=== PATIENT | male | born 1930 | race Caucasian/White ===

== ENCOUNTER 2017-04-18 19:15 | Inpatient (IN) | payer MEDICARE, MEDICAID ==
[~2017-04-18] VITALS: Ht 177.8 cm; Wt 85.3 kg
--- NOTE | 2017-04-18 19:20 | NUR ---
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 PATIENT IS AAOX3, MOROCCAN SPEAKING. PLACED PATIENT ON CARDIAC AND VS MONITORING. COMFORT MEASURES RENDERED. DR GUTIERREZ AT BEDSIDE TO EVALUATE PATIENT.
[2017-04-18] MEDS ORDERED: DILTIAZEM HCL 25 MG IV ONE (19:23)
[2017-04-18] MEDS ORDERED: ONDANSETRON HCL/PF 4 MG/2 ML VIAL ONE (19:29)
[2017-04-18] MEDS ORDERED: DILTIAZEM HCL 25 MG IV IV ONE (19:30)
[2017-04-18] MEDS ORDERED: IV NS 0.9% 500 ML BAG IV ONE (19:30)
[2017-04-18] MEDS ORDERED: ONDANSETRON HCL/PF 4 MG/2 ML VIAL IVP ONE (19:30)
[2017-04-18] MEDS ORDERED: DIGOXIN INJ 0.5 MG/2 ML AMPUL ONE (19:38)
[2017-04-18] MEDS ORDERED: AMIODARONE 150 MG/3 ML VIAL IV ONE ×3 (19:39→20:00)
--- NOTE | 2017-04-18 19:45 | NUR ---
STARTED ON THE AMIO BOLUS AT THIS TIME TO PREET PICC LINE, ONGOING CARDIAC MONITORING. CRASH CART AT BEDSIDE. JARED AT BEDSIDE WITH DR GUTIERREZ.
[2017-04-18 19:59] LABS: BASOPHILS # (AUTO) 0.1 /CMM (0.0-0.2); BASOPHILS % (AUTO) 0.6 % (0.0-2.0); EOSINOPHILS # (AUTO) 0.1 /CMM (0.0-0.7); EOSINOPHILS % (AUTO) 0.9 % (0.0-6.0); HEMATOCRIT 28 % (39-51); HEMOGLOBIN 9.4 g/dL (13.5-17.5); LYMPHOCYTES # (AUTO) 1.2 /CMM (0.8-4.8); LYMPHOCYTES % (AUTO) 13.5 % (20.0-44.0); MEAN CORPUSCULAR HEMOGLOBIN 30 PG (26.0-33.0); MEAN CORPUSCULAR HGB CONC 34 g/dl (31.0-36.0); MEAN CORPUSCULAR VOLUME 89 fL (80-96); MONOCYTES # (AUTO) 0.6 /CMM (0.1-1.30); MONOCYTES % (AUTO) 7.4 % (2.0-12.0); NEUTROPHILS # (AUTO) 6.7 /CMM (1.8-8.9); NEUTROPHILS % (AUTO) 77.6 % (43.0-81.0); PLATELET COUNT (AUTO) 170 /CMM (150-450); RDW COEFFICIENT OF VARIATION 16.3 (11.5-15.0); WHITE BLOOD COUNT (AUTO) 8.7 K/uL (4.3-11.0)
[2017-04-18] MEDS ORDERED: DIGOXIN INJ 0.5 MG/2 ML AMPUL IV ONE (20:00)
[2017-04-18] MEDS ORDERED: AMIODARONE 150 MG in IV D5W 100 ML IV ONE (20:00)
[2017-04-18] MEDS ORDERED: IV NS 0.9% 500 ML IV ONE (20:00)
[2017-04-18] MEDS: AMIODARONE 900 MG in IV D5W 482 ML IV PRN ×2 (20:05→22:00)
--- NOTE | 2017-04-18 20:05 | NUR ---
STARTED PATIENT WITH THE AMIO DRIP AT THIS TIME AT 1MG/MIN. PATIENT REPORTS RELIEF FROM CHEST PAIN AT THIS TIME. WILL CLOSELY MONITOR PATIENT.
[2017-04-18 20:08] LABS: INR 1.24 (0.87-1.13); PROTHROMBIN TIME 12.9 SECS (9.5-12.7)
[2017-04-18 20:12] LABS: CALCIUM, SERUM 7.3 mg/dL (8.5-10.1); CARBON DIOXIDE 18 mmol/L (21-32); CHLORIDE 106 mmol/L (98-107); CREATININE 3.4 mg/dL (0.6-1.3); GLUCOSE 104 mg/dL (74-106); POTASSIUM 3.8 mmol/L (3.5-5.1); SODIUM SERUM 136 mmol/L (136-145); TROPONIN I 0.072 ng/mL (0.00-0.056); UREA NITROGEN, BLOOD 48 mg/dL (7-18)
[2017-04-18 20:25] LABS: ALANINE AMINOTRANSFERASE 45 U/L (12-78); ALBUMIN 2.9 g/dL (3.4-5.0); ALKALINE PHOSPHATASE 70 U/L (46-116); ASPARTATE AMINOTRANSFERASE 67 U/L (15-37); B-TYPE NATRIURETIC PEPTIDE 514 PG/ML (0-125); BILIRUBIN,DIRECT 0.1 mg/dL (0.0-0.2); BILIRUBIN,TOTAL 0.6 mg/dL (0.2-1.0); TOTAL PROTEIN, SERUM 5.4 g/dL (6.4-8.2)
[2017-04-18] MEDS ORDERED: *INS NOVA SQ (20:44)
[2017-04-18] MEDS ORDERED: METR500P4 IV (20:44)
[2017-04-18] MEDS ORDERED: ASPI-1169 PO (20:44)
[2017-04-18] MEDS ORDERED: DILT240C2 PO (20:44)
[2017-04-18] MEDS ORDERED: METO-356 PO (20:44)
[2017-04-18] MEDS ORDERED: ATOR40TA PO (20:44)
[2017-04-18] MEDS ORDERED: INSU3INS9 SQ ×2 (20:44)
[2017-04-18] MEDS ORDERED: LEVO25TA7 PO (20:44)
[2017-04-18] MEDS ORDERED: SITA100T PO (20:44)
[2017-04-18] MEDS ORDERED: BUDE10.2 INH (20:44)
[2017-04-18] MEDS ORDERED: FURO20TA4 PO (20:44)
[2017-04-18] MEDS ORDERED: LEVO500P8 IV (20:44)
[2017-04-18] MEDS ORDERED: OMEP20CA10 PO (20:44)
[2017-04-18] MEDS ORDERED: LOSA50TA21 PO (20:44)
--- NOTE | 2017-04-18 21:10 | NUR ---
TRANSFERRED PATIENT TO ICU BED 252 VIA ALS PROTOCOL, ENDORSED TO DISHA BALBUENA AT BEDSIDE.
[2017-04-18 21:13] VITALS: BP 119/49
--- NOTE | 2017-04-18 21:15 | NUR ---
ADOPTION SERVICES MANAGER RCD PT FROM ER W/DX CHEST PAIN; PT IS A/O x4 ABLE TO MAKES NEEDS KNOWN. NSR ON MONITOR. CLEAR LUNG SOUNDS ON O2 2L NC. PT DENIES CHEST PAIN ONLY SOME DISCOMFORT TO BLE. PT MID ABDOMEN INCISION. LARGE BRUISES TO BACK AREA. COLOSTOMY WITH SMALL AMOUNT OF FORMED STOOL NOTED. PREET PICC LINE PATENT AND FLUSHING WELL. AMIODARONE DRIP AT 1 MG/MIN PER ER STARTED AT 2000; WILL ADJUST DOSAGE AT 0200.
[2017-04-18 22:00] VITALS: BP 115/58
--- NOTE | 2017-04-18 22:00 | NUR ---
BIOINFORMATICIST JARED AT BEDSIDE UPDATED WITH PLAN OF CARE. PT CONTINUES TO DENY CHEST PAIN. S/W C SANGEETHA DURABILITY TECHNICIAN OKAY FOR PT TO HAVE DIET AND SHE WILL SEE PT SOON.
[2017-04-18 22:30] VITALS: BP 101/52
[2017-04-18] MEDS ORDERED: ACETAMINOPHEN 325 MG TABLET PO PRN (22:30)
[2017-04-18] MEDS: IV NS 0.9% 1,000 ML IV PRN (22:30)
[2017-04-18] MEDS ORDERED: Z GUARD REMEDY 2 OZ OINT TP PRN (22:30)
[2017-04-18] MEDS ORDERED: ONDANSETRON HCL/PF 4 MG/2 ML VIAL IVP PRN (22:30)
[2017-04-18] MEDS ORDERED: MAGNESIUM HYDROXIDE 30 ML UDC PO PRN (22:30)
[2017-04-18] MEDS ORDERED: METRONIDAZOLE 500MG/ NS 100ML 100 ML IV ONE (22:45)
[2017-04-18] MEDS ORDERED: ZOLPIDEM TARTRATE 5 MG TABLET ONE (22:45)
[2017-04-18] MEDS: ZOLPIDEM TARTRATE 5 MG TABLET PO PRN (22:47)
--- NOTE | 2017-04-18 22:47 | NUR ---
PYROMETER MECHANIC PT REQUESTED SLEEPING PILL; AMBIEN 5 MG PO GIVEN. EDUCATED PT ON MEDICATION. VERBALIZED UNDERSTANDING.
[2017-04-18 23:00] VITALS: BP 116/51
[2017-04-18] MEDS ORDERED: FLAGYL/NS RTU 500 MG/100 ML PIGGYBACK IV SCH (23:00)
[2017-04-18 23:30] VITALS: BP 111/77
[2017-04-19] VITALS (46 sets, daily range): BP systolic 103–171; BP diastolic 44–83
[2017-04-19] MEDS: LEVOFLOXACIN 500 MG /D5W 100ML 100 ML IV SCH (03:00)
[2017-04-19 05:27] LABS: BASOPHILS % (AUTO) 0.3 % (0.0-2.0); EOSINOPHILS # (AUTO) 0.1 /CMM (0.0-0.7); EOSINOPHILS % (AUTO) 2.1 % (0.0-6.0); HEMATOCRIT 23 % (39-51); HEMOGLOBIN 7.8 g/dL (13.5-17.5); LYMPHOCYTES # (AUTO) 0.9 /CMM (0.8-4.8); LYMPHOCYTES % (AUTO) 16.2 % (20.0-44.0); MEAN CORPUSCULAR HEMOGLOBIN 31 PG (26.0-33.0); MEAN CORPUSCULAR HGB CONC 34 g/dl (31.0-36.0); MEAN CORPUSCULAR VOLUME 90 fL (80-96); MONOCYTES # (AUTO) 0.5 /CMM (0.1-1.30); MONOCYTES % (AUTO) 9.3 % (2.0-12.0); NEUTROPHILS # (AUTO) 4.2 /CMM (1.8-8.9); NEUTROPHILS % (AUTO) 72.1 % (43.0-81.0); PLATELET COUNT (AUTO) 128 /CMM (150-450); RDW COEFFICIENT OF VARIATION 17.2 (11.5-15.0); RED BLOOD CELL COUNT(AUTO) 2.52 MIL/uL (4.5-6.0); WHITE BLOOD COUNT (AUTO) 5.8 K/uL (4.3-11.0)
[2017-04-19 05:44] LABS: CALCIUM, SERUM 7.1 mg/dL (8.5-10.1); CARBON DIOXIDE 19 mmol/L (21-32); CHLORIDE 107 mmol/L (98-107); CREATININE 3.5 mg/dL (0.6-1.3); GLUCOSE 101 mg/dL (74-106); PHOSPHORUS 3.4 mg/dL (2.5-4.9); POTASSIUM 3.9 mmol/L (3.5-5.1); SODIUM SERUM 137 mmol/L (136-145); UREA NITROGEN, BLOOD 49 mg/dL (7-18)
[2017-04-19 05:46] LABS: CHOLESTEROL 71 mg/dL (<200); HDL CHOLESTEROL 29 mg/dL (40-60); LDL 34 mg/dL (0-99); TRIGLYCERIDES 56 mg/dL (30-150)
[2017-04-19] MEDS: METRONIDAZOLE 500MG/ NS 100ML 500 MG in PREMIX 1 EA IV SCH ×3 (06:15→21:13)
--- NOTE | 2017-04-19 06:57 | NUR ---
POCKETED SPRING MACHINE OPERATOR PT DENIED CHEST PAIN ALL THROUGH SHIFT.
[2017-04-19 08:10] LABS: THYROID STIMULATING HORMONE 7.485 uIU/mL (0.358-3.74)
[2017-04-19] MEDS: LINAGLIPTIN 5 MG TABLET PO SCH (08:33)
[2017-04-19] MEDS: LEVOTHYROXINE SODIUM 25 MCG TABLET PO SCH (08:33)
[2017-04-19] MEDS ORDERED: LOSARTAN POTASSIUM 50 MG TABLET PO SCH (09:00)
[2017-04-19] MEDS: IV NS 0.9% 1,000 ML IV PRN (12:42)
[2017-04-19] MEDS ORDERED: AMIODARONE HCL 200 MG TABLET PO SCH (17:00)
[2017-04-19] MEDS ORDERED: ATORVASTATIN 40 MG TABLET PO SCH (18:00)
[2017-04-19 18:25] LABS: HEMOGLOBIN 9.7 g/dL (13.5-17.5)
--- NOTE | 2017-04-19 19:30 | NUR ---
THREAD LASTER RCD PT W/DX CHEST PAIN; PT IS A/Ox4. DENIES CHEST PAIN. NSR ON MONITOR. ON ROOM W/CLEAR LUNG SOUNDS. PREET PICC W/NS @ 75 ML/HR. RENDERED JAC CARE. PT PENDING TRANSFER TO [facility].
[2017-04-19] MEDS: ZOLPIDEM TARTRATE 5 MG TABLET PO PRN (21:13)
--- NOTE | 2017-04-19 21:13 | NUR ---
STONE CARRIAGE OPERATOR PT GIVEN AMBIEN 5 MG REQUESTED.
--- NOTE | 2017-04-19 23:00 | NUR ---
RN INITIAL [facility] NOTES TRANSFER FROM ICU RECEIVED 86 YR OLD MALE, AOX3 GREEK SPEAKING ON R/A WELL ALDA, DENIES ANY PAIN OR DISCOMFORT. WITH ABD INCISION 3 WKS AGO, GENTLE CARE WHILE PROVINDING ADLS. BP 160/69 102 AFEBRILE. WITH A PREET PICC LINE, WITH NS@75ML/HR RUNNING. SITE INTACT, NO SIGN OF INFILTRATION. LEAD ARCHITECT SANGEETHA PAGED FOR ELEVATED BP. ALL PT NEEDS MET, SAFETY MEASURES IN PLACE, WILL CONT TO MONITOR.
--- NOTE | 2017-04-19 23:00 | NUR ---
TRAFFIC ANALYSIS TECHNICIAN PT TRANSFERRED TO [facility]. RE[facility] PRIOR TO TRANSFER.
--- NOTE | 2017-04-19 23:15 | NUR ---
MACHINE CLOTH TRIMMER NOTIFIED PT JARED BOSCH OF TRANSFER.
--- NOTE | 2017-04-20 00:20 | NUR ---
SANGEETHA WOODEN SHADE HARDWARE INSTALLER CALL BACK WITH ORDER FOR HYDRAZINE 10MG IV Q6H PRN. ORDER CARRIED OUT.
[2017-04-20] MEDS ORDERED: hydrALAZINE HCL IV 20 MG VIAL ONE (00:21)
[2017-04-20] MEDS ORDERED: hydrALAZINE HCL IV 20 MG VIAL IV PRN (00:30)
[2017-04-20 00:53] VITALS: BP 160/69
[2017-04-20] MEDS: HYDROCODONE/APAP 5/325MG 1 EACH TABLET PO PRN ×4 (03:06→21:22)
[2017-04-20] MEDS: LEVOFLOXACIN 500 MG /D5W 100ML 100 ML IV SCH (03:10)
[2017-04-20 04:00] VITALS: BP 163/66
[2017-04-20] MEDS: METRONIDAZOLE 500MG/ NS 100ML 500 MG in PREMIX 1 EA IV SCH ×3 (04:52→21:27)
[2017-04-20] MEDS: hydrALAZINE HCL 50 MG TABLET PO SCH ×4 (06:00→16:48)
--- NOTE | 2017-04-20 07:02 | NUR ---
RN CLOSING NOTES PT ENDORSED AOX3, ALL NEEDS MET CLEANED OMARI 2HR, ON ROOM AIR, WELL ALDA, BP TENDS TO TREND UP WITH PRN ORDER OBTAINED. WILL ENDORSE TO AM NURSE TO F/U AND MONITOR.
--- NOTE | 2017-04-20 07:15 | NUR ---
RN INITIAL NOTE RN RECEIVED PATIENT IN BED AOX4 GUINEAN SPEAKING/ SOME PALAUAN WELL ON R/A WELL TOLERATING WELL , STATES ABDOMINAL PAIN AT THIS TIME ALSO REQUESTING A DRESSING CHANGE MIDLINE ABD INCISION, . PREET PICC LINE, WITH NS@75ML/HR RUNNING. SITE INTACT, NO SIGN OF INFILTRATION. ALL NEEDS MET AT THIS TIME , SAFETY MEASURES IN PLACE,RN WILL CONT TO MONITOR THROUGHOUT THE DAY R.
[2017-04-20 08:00] VITALS: BP 152/82
[2017-04-20 08:04] LABS: BASOPHILS % (AUTO) 0.1 % (0.0-2.0); EOSINOPHILS # (AUTO) 0.1 /CMM (0.0-0.7); EOSINOPHILS % (AUTO) 1.2 % (0.0-6.0); HEMATOCRIT 31 % (39-51); HEMOGLOBIN 10.8 g/dL (13.5-17.5); LYMPHOCYTES # (AUTO) 1.1 /CMM (0.8-4.8); LYMPHOCYTES % (AUTO) 11.2 % (20.0-44.0); MEAN CORPUSCULAR HEMOGLOBIN 31 PG (26.0-33.0); MEAN CORPUSCULAR HGB CONC 35 g/dl (31.0-36.0); MEAN CORPUSCULAR VOLUME 89 fL (80-96); MONOCYTES % (AUTO) 10.7 % (2.0-12.0); NEUTROPHILS # (AUTO) 7.2 /CMM (1.8-8.9); NEUTROPHILS % (AUTO) 76.8 % (43.0-81.0); PLATELET COUNT (AUTO) 125 /CMM (150-450); RDW COEFFICIENT OF VARIATION 15.7 (11.5-15.0); RED BLOOD CELL COUNT(AUTO) 3.47 MIL/uL (4.5-6.0); WHITE BLOOD COUNT (AUTO) 9.4 K/uL (4.3-11.0)
[2017-04-20] MEDS: LINAGLIPTIN 5 MG TABLET PO SCH (08:15)
[2017-04-20] MEDS: LEVOTHYROXINE SODIUM 25 MCG TABLET PO SCH (08:15)
[2017-04-20 08:32] LABS: ALANINE AMINOTRANSFERASE 62 U/L (12-78); ALBUMIN 2.9 g/dL (3.4-5.0); ALKALINE PHOSPHATASE 85 U/L (46-116); ASPARTATE AMINOTRANSFERASE 121 U/L (15-37); BILIRUBIN,TOTAL 0.6 mg/dL (0.2-1.0); CALCIUM, SERUM 7.3 mg/dL (8.5-10.1); CARBON DIOXIDE 19 mmol/L (21-32); CHLORIDE 112 mmol/L (98-107); CREATININE 3.6 mg/dL (0.6-1.3); GLUCOSE 100 mg/dL (74-106); MAGNESIUM 2.1 mg/dL (1.8-2.4); PHOSPHORUS 3.4 mg/dL (2.5-4.9); POTASSIUM 4.3 mmol/L (3.5-5.1); SODIUM SERUM 142 mmol/L (136-145); TOTAL PROTEIN, SERUM 5.6 g/dL (6.4-8.2); UREA NITROGEN, BLOOD 46 mg/dL (7-18)
[2017-04-20 08:36] LABS: TROPONIN I 0.067 ng/mL (0.00-0.056)
--- NOTE | 2017-04-20 08:59 | NUR ---
WOUND CARE CONSULT: PT PRESENTS WITH MULTIPLE AREAS OF BRUISING, ABDOMINAL INCISION WITH RETENTION SUTURES, COLOSTOMY AND LEFT HEEL INTACT DEEP TISSUE INJURY. PT IS INCONTINENT OF URINE. ALL SKIN PROTECTION AND WOUND RECOMMENDATIONS DISCUSSED WITH NURSING STAFF. PT FOLLOWED BY SURGICAL TEAM. PT INSTRUCTED IN IMPORTANCE OF FLOATING HEELS, TURNING AND REPOSITIONING IN BED. PT STATES UNDERSTANDING. NURSING STAFF TO ASSIST AND REMIND PATIENT TO REPOSITION. CURRENT KATARINA SCORE IS 20. WILL SEE PRN. REGALADO IN AGREEMENT WITH PLAN OF CARE. Addendum: 04/20/17 at 0903 by JASON RIZO WNDNU Amended: Links added.
[2017-04-20] MEDS: DRONEDARONE HYDROCHLORIDE 400 MG TABLET PO SCH ×2 (09:00→19:52)
[2017-04-20] MEDS: CLOTRIMAZOLE 1% 15 GM TUBE TP SCH ×2 (09:00→16:49)
[2017-04-20 12:00] VITALS: BP 155/76
--- NOTE | 2017-04-20 14:19 | NUR ---
DIRECTOR CAREER ABDOMINAL WOUND TREATMENT ORDERS CLARIFIED WITH GENERAL SURGEON COMPUTER PROJECT MANAGER AT THIS TIME.
[2017-04-20] MEDS: DAKINS QUARTER STRENGTH (0.125%) 480 ML BOTTLE TOP SCH (14:30)
[2017-04-20 16:00] VITALS: BP 154/72
--- NOTE | 2017-04-20 16:30 | NUR ---
RN NOTE DANKINS SOLUTION NOT AVAILABLE DRESSING CHANGED USING NORMAL SALINE PACKED GAUZE, MEPILEX APPLIED TO LOWER LEFT HEEL PATIENT HAS HAD 3 WET DIAPERS FULL OF URINE, COLOSTOMY CLEANED / EMPTIED X4. GAS BUILD UP NOTED , PATIENT STABLE NO ISSUES NOTED FURTHER
[2017-04-20] MEDS ORDERED: DILTIAZEM HCL 25 MG IV IV ONE (19:34)
--- NOTE | 2017-04-20 19:42 | NUR ---
RN NOTE PATIENT IN BED COMPLAINING OF INCREASED CHEST PAIN RN CONTACTED PIYUSH LINARES NP ORDERED DILTIAZEM 5 MG IV PUSH NOW MEDICATION ADMINISTERED AND GIVEN VIA 2 RN VERIFICATION HR WAS 166 CURRENTLY 125 , PATIENT STATES CHEST PAIN STILL EXIST HOWEVER IT SI NOT BAD . PATIENT BEGAN EXPERIENCING CHEST PAINT AFTER WALKING WITH THE SCRUB WOMAN AROUND THE UNIT. PATIENT HAS NOT TAKEN ORDERED DRONEDARONE DUE TO LACK OF EATING PATIENT STATED DECREASED APPETITE. PATIENT HAS BEEN DRINKING FLUID THROUGHOUT THE DAY, AND HAS ALSO AMBULATED WITH PHYSICAL THERAPY, BLADDER SCAN REVEALED 250-300 CC OF URINE , JO-ANN CROSS NOTIFIED INFORMS RN TO CONTINUE TO OBSERVE THE PATIENT AND BLADDER SCAN PATIENT AGAIN AFTER THE PATIENT VOIDS IF PATIENT REMAINS WITH OVER 250 ML OF URINE IN BLADDER POST URINATION RN MUST PLACE A ROSARIO CATHETER , PATIENT AWARE OF PLAN OF CARE. PATIENT REMAINS IN BED CURRENTLY CARE ENDORSED TO PM RN PM RN WILL CONTINUE TO FOLLOW
--- NOTE | 2017-04-20 19:54 | NUR ---
RN NOTE MULTIQ GIVEN TO PATIENT , PATIENT CONTINUE TO REFUSE FOOD AT THIS TIME PM RN CONTINUES TO FOLLOW THE PATIENTS PROGRESS
[2017-04-20 20:00] VITALS: BP 98/56
--- NOTE | 2017-04-20 22:20 | NUR ---
TELE-TD/LARRY CAR OPERATOR PT HEART RHYTHM BACK TO SVT 162 HR. PIYUSH ACNP CALLED. ORDERS RECEIVED FOR CARDIZEM 10MG IVP x1 NOW AND MORPHINE 2MG IVPx1 NOW. WILL CONTINUE TO MONITOR CLOSELY.
[2017-04-20] MEDS ORDERED: MORPHINE SULFATE INJ 2 MG/ML DISP.SYRIN ONE (22:21)
[2017-04-20] MEDS ORDERED: DILTIAZEM HCL 25 MG IV ONE (22:22)
[2017-04-20] MEDS ORDERED: DILTIAZEM HCL 50 MG IV IV ONE (22:30)
[2017-04-20] MEDS ORDERED: MORPHINE SULFATE INJ 2 MG/ML DISP.SYRIN IV ONE (22:30)
--- NOTE | 2017-04-20 22:30 | NUR ---
TELE-TD/WIRE TINNER PT HR DOWN TO 119 AFTER CARDIZEM 10MG IVP. WILL CONTINUE TO MONITOR.
[2017-04-21] VITALS: BP 125/58
[2017-04-21] MEDS: ZOLPIDEM TARTRATE 5 MG TABLET PO PRN (00:25)
[2017-04-21] MEDS: LEVOFLOXACIN 500 MG /D5W 100ML 100 ML IV SCH (03:09)
[2017-04-21 04:00] VITALS: BP 115/68
[2017-04-21] MEDS: METRONIDAZOLE 500MG/ NS 100ML 500 MG in PREMIX 1 EA IV SCH ×3 (05:14→21:19)
[2017-04-21 06:28] LABS: BASOPHILS % (AUTO) 0.1 % (0.0-2.0); EOSINOPHILS # (AUTO) 0.1 /CMM (0.0-0.7); HEMATOCRIT 30 % (39-51); LYMPHOCYTES # (AUTO) 1.4 /CMM (0.8-4.8); LYMPHOCYTES % (AUTO) 15.7 % (20.0-44.0); MEAN CORPUSCULAR HEMOGLOBIN 31 PG (26.0-33.0); MEAN CORPUSCULAR HGB CONC 34 g/dl (31.0-36.0); MEAN CORPUSCULAR VOLUME 90 fL (80-96); MONOCYTES # (AUTO) 1.1 /CMM (0.1-1.30); MONOCYTES % (AUTO) 12.1 % (2.0-12.0); NEUTROPHILS # (AUTO) 6.3 /CMM (1.8-8.9); NEUTROPHILS % (AUTO) 71.1 % (43.0-81.0); PLATELET COUNT (AUTO) 119 /CMM (150-450); RDW COEFFICIENT OF VARIATION 16.2 (11.5-15.0); RED BLOOD CELL COUNT(AUTO) 3.26 MIL/uL (4.5-6.0); WHITE BLOOD COUNT (AUTO) 8.9 K/uL (4.3-11.0)
[2017-04-21 06:51] LABS: CALCIUM, SERUM 7.2 mg/dL (8.5-10.1); CARBON DIOXIDE 17 mmol/L (21-32); CHLORIDE 108 mmol/L (98-107); CREATININE 3.6 mg/dL (0.6-1.3); GLUCOSE 85 mg/dL (74-106); POTASSIUM 4.5 mmol/L (3.5-5.1); SODIUM SERUM 137 mmol/L (136-145); UREA NITROGEN, BLOOD 44 mg/dL (7-18)
[2017-04-21 07:15] LABS: IMMUNOGLOBULIN A, SERUM 229 mg/dL (61-437); IMMUNOGLOBULIN G, SERUM 737 mg/dL (700-1600); IMMUNOGLOBULIN M, SERUM 143 mg/dL (15-143)
--- NOTE | 2017-04-21 07:30 | NUR ---
[facility] RN INITIAL NOTES RECEIVED PATIENT SLEEPING IN BED, EASY TO AROUSE, AOX3, DIVEHI SPEAKING, NO CO OF CHEST PAIN AT THIS TIME, ON 3L NC 98% O2 SATURATION NO SIGNS OF DISTRESS, ON TELE MONITORING 115 ST, WILL MONITOR FOR NEW EPISODES OF SVT, L LOWER ABDOMEN COLOSTOMY, IV PREET PICC LINE INFUSING NS@ 75 ML/HR, CLEAN AND PATENT, BED IN LOW AND LOCKED POSITION, CALL LIGHT WITHIN REACH, WILL CONTINUE TO MONITOR.
[2017-04-21 08:00] VITALS: BP 156/65
[2017-04-21] MEDS: LEVOTHYROXINE SODIUM 25 MCG TABLET PO SCH (08:45)
[2017-04-21] MEDS: LINAGLIPTIN 5 MG TABLET PO SCH (08:45)
[2017-04-21] MEDS: DRONEDARONE HYDROCHLORIDE 400 MG TABLET PO SCH (08:45)
[2017-04-21] MEDS: hydrALAZINE HCL 50 MG TABLET PO SCH ×3 (08:46→18:06)
[2017-04-21] MEDS: CLOTRIMAZOLE 1% 15 GM TUBE TP SCH ×2 (08:47→18:07)
[2017-04-21] MEDS: DAKINS QUARTER STRENGTH (0.125%) 480 ML BOTTLE TOP SCH (08:47)
--- NOTE | 2017-04-21 08:50 | NUR ---
[facility] RN NOTES PATIENT TAKEN TO CT OF ABDOMEN, WENT WITH PATIENT FOR TELE MONITORING, NO DISTRESS NOTED, WILL CONTINUE TO MONITOR.
[2017-04-21] MEDS: SOTALOL HCL 80 MG TABLET PO SCH ×2 (11:00→21:20)
--- NOTE | 2017-04-21 11:18 | NUR ---
LEARNING SUPPORT TEACHER NOTES PATIENT CO OF NAUSEA ATTEMPTING TO VOMIT, GAVE ZOFRAN. WILL CONTINUE TO MONITOR.
[2017-04-21 12:00] VITALS: BP 129/66
[2017-04-21] MEDS: IV NS 0.9% 1,000 ML IV PRN (13:40)
[2017-04-21] MEDS ORDERED: LORAZEPAM 0.5 MG TABLET PO ONE (14:30)
[2017-04-21 16:00] VITALS: BP 123/54
--- NOTE | 2017-04-21 18:49 | NUR ---
EMPLOYMENT ADJUDICATOR END NOTES PATIENT RESTING IN BED, ALL NEEDS MET NO SIGNS OF DISTRESS, WOUND CARE DONE ON ABDOMEN, COLOSTOMY EMPTIED, BED IN LOW AND LOCKED POSITION, WILL ENDORSE TO PHARMACY INFORMATICS MANAGER FOR CONTINUITY OF CARE.
--- NOTE | 2017-04-21 19:30 | NUR ---
Received patient in the bed.No unusual signs or symptoms observed or reported,no signs of discomfort or distress.
[2017-04-21] MEDS: BACLOFEN (10 MG) 10 MG TABLET PO PRN (19:53)
[2017-04-21 20:00] VITALS: BP 129/51
--- NOTE | 2017-04-21 23:00 | NUR ---
Resting quietly,no problems
[2017-04-22] VITALS (8 sets, daily range): BP systolic 116–168; BP diastolic 47–82
[2017-04-22] MEDS: ZOLPIDEM TARTRATE 5 MG TABLET PO PRN (00:29)
--- NOTE | 2017-04-22 03:00 | NUR ---
no unusual signs or symptoms observed or reported,no problems
[2017-04-22] MEDS: IV NS 0.9% 1,000 ML IV PRN (05:13)
[2017-04-22] MEDS: METRONIDAZOLE 500MG/ NS 100ML 500 MG in PREMIX 1 EA IV SCH ×3 (05:14→21:48)
--- NOTE | 2017-04-22 06:56 | NUR ---
no problems,no complaints
--- NOTE | 2017-04-22 07:10 | NUR ---
RN INITIAL NOTES: REC'D PT ASLEEP ON BED, NOT IN ANY DISTRESS, EASILY AROUSABLE, A/O X 2, BRITISH SPEAKING BUT ABLE TO UNDERSTAND SOME SPANISH, DENIES CHEST PAIN. ON NC AT 2-3LPM/NC, NO SOB. ON TELEMONITOR, SR. IV LINE ACCESS ON PREET PICC LINE AND LFA G20, FLUSHING WELL, NO S/SX OF INFECTION/INFILTRATION NOTED. PREET PICC LINE HAS NS X 75 CC/HR INFUSING WELL. HAS SURGICAL WOUND ON THE ABDOMEN W/ DRY & INTACT DRESSING. HAS COLOSTOMY BAG INTACT W/ SOFT GREENISH OUTPUT. HAS FC DRAINING TO ADEQUATE URINE OUTPUT. PROVIDED COMFORT & SAFETY MEASURES. BED KEPT LOW & IN LOCKED POS. CALL LIGHT PLACED W/IN REACH. WILL CONTINUE TO MONITOR AND ATTEND PT NEEDS.
[2017-04-22 07:54] LABS: ALANINE AMINOTRANSFERASE 52 U/L (12-78); ALBUMIN 2.6 g/dL (3.4-5.0); ALKALINE PHOSPHATASE 75 U/L (46-116); ASPARTATE AMINOTRANSFERASE 56 U/L (15-37); BILIRUBIN,TOTAL 0.5 mg/dL (0.2-1.0); CALCIUM, SERUM 7.4 mg/dL (8.5-10.1); CREATININE 2.3 mg/dL (0.6-1.3); GLUCOSE 89 mg/dL (74-106); MAGNESIUM 2.1 mg/dL (1.8-2.4); PHOSPHORUS 3.3 mg/dL (2.5-4.9); TOTAL PROTEIN, SERUM 5.2 g/dL (6.4-8.2); UREA NITROGEN, BLOOD 33 mg/dL (7-18)
[2017-04-22 08:00] LABS: BASOPHILS % (AUTO) 0.3 % (0.0-2.0); EOSINOPHILS # (AUTO) 0.2 /CMM (0.0-0.7); EOSINOPHILS % (AUTO) 2.7 % (0.0-6.0); HEMATOCRIT 29 % (39-51); HEMOGLOBIN 9.9 g/dL (13.5-17.5); LYMPHOCYTES % (AUTO) 11.9 % (20.0-44.0); MEAN CORPUSCULAR HEMOGLOBIN 30 PG (26.0-33.0); MEAN CORPUSCULAR HGB CONC 34 g/dl (31.0-36.0); MEAN CORPUSCULAR VOLUME 89 fL (80-96); MONOCYTES # (AUTO) 0.8 /CMM (0.1-1.30); MONOCYTES % (AUTO) 9.6 % (2.0-12.0); NEUTROPHILS # (AUTO) 6.6 /CMM (1.8-8.9); NEUTROPHILS % (AUTO) 75.5 % (43.0-81.0); PLATELET COUNT (AUTO) 116 /CMM (150-450); RDW COEFFICIENT OF VARIATION 16.8 (11.5-15.0); RED BLOOD CELL COUNT(AUTO) 3.25 MIL/uL (4.5-6.0); WHITE BLOOD COUNT (AUTO) 8.6 K/uL (4.3-11.0)
[2017-04-22 08:13] LABS: CARBON DIOXIDE 17 mmol/L (21-32); CHLORIDE 113 mmol/L (98-107); POTASSIUM 4.7 mmol/L (3.5-5.1); SODIUM SERUM 143 mmol/L (136-145)
[2017-04-22] MEDS: hydrALAZINE HCL 50 MG TABLET PO SCH ×3 (08:43→16:34)
[2017-04-22] MEDS: LEVOTHYROXINE SODIUM 25 MCG TABLET PO SCH (08:43)
[2017-04-22] MEDS: LINAGLIPTIN 5 MG TABLET PO SCH (08:43)
[2017-04-22] MEDS: DAKINS QUARTER STRENGTH (0.125%) 480 ML BOTTLE TOP SCH (08:44)
[2017-04-22] MEDS: SOTALOL HCL 80 MG TABLET PO SCH (08:44)
[2017-04-22] MEDS: CLOTRIMAZOLE 1% 15 GM TUBE TP SCH ×2 (08:45→16:34)
--- NOTE | 2017-04-22 12:00 | NUR ---
TEACHER VOCAL NOTES: PT TRANSFERRED TO ROOM 320/2 ORDERED BY NURSING GARBAGE COLLECTOR DRIVER/CN VIA BED VIA ACLS PROTOCOL ACCOMPANIED BY COUNTER PERSON. PT LEFT THE UNIT IN GUARDED CONDITION, NOT IN ANY DISTRESS, DENIES ANY CHEST PAIN. REPORT GIVEN TO SREE MARIO FOR JUANA.
--- NOTE | 2017-04-22 12:00 | NUR ---
EXTENSION SUPERVISOR OPENING NOTES. PT RECEIVED a&0X3 [place] ISLANDER SPEAKING WITH SON LAUREN DIAZ AT BEDSIDE. PT WITH O2 VIA NC AT 2LPM, SAO2 99%. PT REPORTING NO PAIN AT THIS TIME. PT WITH PICC LINE G18 AT RIGHT UPPER ARM AND IVC AT LEFT FA G18 BOTH INTACT AND OPERATIONAL. PT WITH LOWER MID ABDO INCISION REQUIRING WOUND DRESSING CHANGE. PT WITH ROSARIO INTACT AND OPERATIONAL DRAINING LITE YELLOW URINE. PT WITH COLOSTOMY BAG WITH A SMALL AMOUNT OF DARK BROWN SOFT STOOL INSITU. PT BRIEFED ON TODAY'S POC AND IS WITHOUT CONCERN OR COMPLAINT AT THIS TIME. WILL CONTINUE TO MONITOR.
[2017-04-22] MEDS: BACLOFEN (10 MG) 10 MG TABLET PO PRN (16:53)
--- NOTE | 2017-04-22 19:07 | NUR ---
MS RN CLOSING NOTES. PT A&0X3, FAMILY AT BEDSIDE. PT WITH O2 VIA NC AT 3LPM. PT REPORTING NO PAIN. PT WITH FREQUENT HICCUPS UNRELIEVED BY MEDICATIONS, WILL ENDORSE TO NIGHT NURSE. PT WITH LEFT FA IVC G#20 S/L AND PICC LINE AT R UA G#18 S/L. PT WITH ROSARIO INTACT AND OPERATIONAL. WOUND CARE ATTENDED TO. BED IN LOWEST LOCKED POSITION WITH HANDRAILSX4 AND CALL OLIVERA WITHIN REACH. ALL DAY NURSE DUTIES ATTENDED TO, PATIENT IS WITHOUT CONCERN OR COMPLAINT AT THIS TIME, WILL ENDORSE TO NIGHT NURSE.
--- NOTE | 2017-04-22 19:15 | NUR ---
RN NOTES PT IS IN BED, A/O X 2-3. PT WITH O2 VIA NC AT 3LPM. DENIES ANY PAIN. PT WITH LEFT FA IVC G#20 S/L AND PICC LINE AT R UA G#18 S/L. PT WITH ROSARIO INTACT AND OPERATIONAL, DRAINING WELL WITH YELLOW URINE. COLOSTOMY IS IN PLACE. BED IN LOWEST LOCKED POSITION , SAFETY PRECAUTIONS OBSERVED. CALL LIGHT WITHIN REACH . WILL CONT TO MONITOR.
[2017-04-22] MEDS: AMIODARONE HCL 200 MG TABLET PO SCH (21:48)
[2017-04-23] VITALS: BP 124/22
[2017-04-23] MEDS: ZOLPIDEM TARTRATE 5 MG TABLET PO PRN ×2 (00:05→22:52)
[2017-04-23] MEDS: LEVOFLOXACIN 500 MG /D5W 100ML 500 MG in PREMIX 1 EA IV SCH (03:36)
[2017-04-23 04:00] VITALS: BP 147/67
[2017-04-23] MEDS: METRONIDAZOLE 500MG/ NS 100ML 500 MG in PREMIX 1 EA IV SCH ×3 (05:19→21:57)
[2017-04-23] MEDS: HYDROCODONE/APAP 5/325MG 1 EACH TABLET PO PRN (05:32)
--- NOTE | 2017-04-23 06:30 | NUR ---
RN NOTES PT RESTING COMFORTABLY AT THIS TIME, NO DISTRESS, NO SOB. A/O X 2-3. PT WITH O2 VIA NC AT 3LPM, ALDA WELL. DENIES ANY PAIN. PT WITH LEFT FA IVC G#20 S/L AND PICC LINE AT R UA G#18 S/L. PT WITH ROSARIO INTACT AND OPERATIONAL, DRAINING WELL WITH YELLOW URINE. COLOSTOMY IS IN PLACE. ALL DUE MEDS GIVEN. BED IN LOWEST LOCKED POSITION , SAFETY PRECAUTIONS OBSERVED. CALL LIGHT WITHIN REACH . WILL ENDORSE TO NEXT SHIFT FOR JUANA.
--- NOTE | 2017-04-23 07:16 | NUR ---
MOTOR COACH CHAUFFEUR OPENING NOTES RECEIVED PT FROM NIGHTSHIFT NURSE IN STABLE CONDITION. PT IS A/O X3. NO SOB OR SIGNS OF DISTRESS NOTED. BREATHING IS EVEN AND UNLABORED. PT IS ON3 L VIA NC AND SATING WELL @ 99%. HE DENIES ANY CHEST PAIN OR OTHER PAIN AT THIS TIME. ABDOMINAL WOUND NOTED. DRESSING IS CLEAN, DRY, AND INTACT. ROSARIO CATHETER NOTED TO BE INTACT AND DRAINING CLEAR YELLOW URINE. COLOSTOMY NOTED TO BE EMPTY AT THIS TIME. RIGHT UPPER ARM PICC NOTED TO BE INTACT AND PATENT. LEFT FA 20G ALSO NOTED TO BE INTACT AND PATENT. NO REDNESS OR SIGNS OF INFILTRATION NOTED TO EITHER. BED IN LOW LOCKED POSITION, SIDE RAILS UP X2, CALL LIGHT WITHIN REACH. WILL CONTINUE TO MONITOR.
[2017-04-23 08:00] VITALS: BP 138/60
[2017-04-23] MEDS: LEVOTHYROXINE SODIUM 25 MCG TABLET PO SCH (08:33)
[2017-04-23] MEDS: LINAGLIPTIN 5 MG TABLET PO SCH (08:34)
[2017-04-23] MEDS: hydrALAZINE HCL 50 MG TABLET PO SCH ×3 (08:34→16:51)
[2017-04-23] MEDS: DAKINS QUARTER STRENGTH (0.125%) 480 ML BOTTLE TOP SCH (08:35)
[2017-04-23] MEDS: CLOTRIMAZOLE 1% 15 GM TUBE TP SCH ×2 (08:36→16:49)
[2017-04-23] MEDS: AMIODARONE HCL 200 MG TABLET PO SCH ×2 (09:39→21:57)
[2017-04-23 10:53] LABS: BASOPHILS % (AUTO) 0.5 % (0.0-2.0); EOSINOPHILS # (AUTO) 0.3 /CMM (0.0-0.7); EOSINOPHILS % (AUTO) 3.6 % (0.0-6.0); HEMATOCRIT 30 % (39-51); LYMPHOCYTES # (AUTO) 1.3 /CMM (0.8-4.8); LYMPHOCYTES % (AUTO) 17.5 % (20.0-44.0); MEAN CORPUSCULAR HEMOGLOBIN 31 PG (26.0-33.0); MEAN CORPUSCULAR HGB CONC 34 g/dl (31.0-36.0); MEAN CORPUSCULAR VOLUME 91 fL (80-96); MONOCYTES # (AUTO) 0.7 /CMM (0.1-1.30); MONOCYTES % (AUTO) 10.2 % (2.0-12.0); NEUTROPHILS # (AUTO) 4.9 /CMM (1.8-8.9); NEUTROPHILS % (AUTO) 68.2 % (43.0-81.0); PLATELET COUNT (AUTO) 113 /CMM (150-450); RED BLOOD CELL COUNT(AUTO) 3.28 MIL/uL (4.5-6.0); WHITE BLOOD COUNT (AUTO) 7.2 K/uL (4.3-11.0)
[2017-04-23 11:25] LABS: ALANINE AMINOTRANSFERASE 47 U/L (12-78); ALBUMIN 2.3 g/dL (3.4-5.0); ALKALINE PHOSPHATASE 83 U/L (46-116); ASPARTATE AMINOTRANSFERASE 64 U/L (15-37); BILIRUBIN,TOTAL 0.4 mg/dL (0.2-1.0); CALCIUM, SERUM 7.6 mg/dL (8.5-10.1); CARBON DIOXIDE 21 mmol/L (21-32); CHLORIDE 112 mmol/L (98-107); CREATININE 1.7 mg/dL (0.6-1.3); GLUCOSE 155 mg/dL (74-106); MAGNESIUM 1.9 mg/dL (1.8-2.4); PHOSPHORUS 2.7 mg/dL (2.5-4.9); POTASSIUM 4.5 mmol/L (3.5-5.1); SODIUM SERUM 141 mmol/L (136-145); UREA NITROGEN, BLOOD 26 mg/dL (7-18)
[2017-04-23] MEDS ORDERED: FUROSEMIDE 20 MG/2 ML VIAL IV ONE (13:00)
[2017-04-23 16:00] VITALS: BP 129/61
[2017-04-23] MEDS: BACLOFEN (10 MG) 10 MG TABLET PO PRN (16:58)
--- NOTE | 2017-04-23 19:26 | NUR ---
MS RN CLOSING NOTES PT REMAINS IN STABLE CONDITION. ALL NEEDS MET DURING SHIFT AND ORDERS CARRIED OUT ACCORDINGLY. ALL DUE MEDS GIVEN. SAFETY MEASURES REMAIN IN PLACE. WOUND AND SKIN CARE RENDERED. DRESSING REMAINS CLEAN, DRY, AND INTACT. CATHETER AND COLOSTOMY CARE RENDERED. PT WAS REPOSITIONED AND KEPT COMFORTABLE THROUGHOUT SHIFT. WILL ENDORSE TO NIGHTSHIFT NURSE FOR JUANA
[2017-04-23] MEDS ORDERED: DEXTROSE 50%-WATER 50 ML DISP.SYRIN IV PRN (19:30)
[2017-04-23] MEDS ORDERED: INSULIN REGULAR, HUMAN 100 UNIT/ML 3 ML VIAL SQ PRN (19:30)
--- NOTE | 2017-04-23 19:30 | NUR ---
DEFENSE TRAVEL ADMINISTRATOR NOTE, RECEIVED PATIENT AWAKE AND IN BED, NO S/S OR COMPLAINTS OF PAIN AT THIS TIME. PATIENT BREATHING IS UNLABORED WITH EQUAL RISE AND FALL OF THE CHEST. PATIENT IS LIBERIAN SPEAKING. PATIENT IS ALERT AND ORIENTED X 2 ON 3 LITERS OF O2 VIA NASAL CANNULA WITH A SPOO2 97%. PATIENT HAS RIGHT UPPER ARM PICC LINE THAT IS INTACT, PATENT, AND FLUSHING WELL WITH NO S/S OF INFILTRATION. PATIENT ASSISTED WITH TURNING AND REPOSITIONING Q2HR AND PRN FOR COMFORT AND CIRCULATION. PATIENT HAS NO NEEDS AT THIS TIME. PATIENT EDUCATED ON THE USE OF THE CALL LIGHT. PATIENT BED SIDE RAILS UP X 2 FOR SAFETY. PATIENT BED IS LOCKED AND LOW WILL CONTINUE TO MONITOR AND MAINTAIN SAFETY Q15 MIN WITH THE HELP OF STAFF.
[2017-04-23 20:00] VITALS: BP 137/73
[2017-04-23 20:58] VITALS: BP 157/73
[2017-04-23] MEDS: BLOOD SUGAR DIAGNOSTIC 1 EACH STRIP IN SCH (22:06)
--- NOTE | 2017-04-23 22:06 | NUR ---
TECHNOLOGY INSTRUCTOR NOTE, PERFORMED ACCU CHECK ON PATIENT WITH A BLOOD SUGAR RESULT OF 111 NO INSULIN GIVEN PER SLIDING SCALE. WILL CONTINUE TO MONITOR THIS PATIENT.
--- NOTE | 2017-04-23 22:52 | NUR ---
COMPLIANCE AUDITOR NOTE, PATIENT HAS A COMPLAINT OF NOT BEING ABLE TO SLEEP AND IS REQUESTING AMBIEN AT THIS TIME. PATIENT VITAL SIGNS ARE STABLE. GAVE AMBIEN 5MG PO HS ORDERED. WILL REASSESS FOR INSOMNIA AND I WILL CONTINUE TO MONITOR THIS PATIENT.
--- NOTE | 2017-04-24 02:00 | NUR ---
CONCRETE STONE FABRICATING SUPERVISOR NOTE, PATIENT IS A SLEEP IN BED EASILY AROUSES, ALL SCHEDULED PM MEDS GIVEN. PATIENT HAS NO S/S OR COMPLAINT OF PAIN AT THIS TIME. PATIENT IS DISPLAYING NO S/S OF APPARENT DISTRESS AT THIS TIME. PATIENT BREATHING IS UNLABORED WITH EQUAL RISE AND FALL OF THE CHEST. ALL PATIENT NEEDS ANTICIPATED AND MET. PATIENT KEPT CLEAN, DRY, AND COMFORTABLE. PATIENT BED IS LOW AND LOCKED, CALL LIGHT IN REACH WITH TWO SIDE RAILS UP FOR SAFETY. WILL CONTINUE TO MONITOR AND MAINTAIN SAFETY FOR THIS PATIENT.
[2017-04-24] MEDS: METRONIDAZOLE 500MG/ NS 100ML 500 MG in PREMIX 1 EA IV SCH ×3 (04:14→21:07)
[2017-04-24] MEDS: BLOOD SUGAR DIAGNOSTIC 1 EACH STRIP IN SCH ×4 (06:40→22:17)
--- NOTE | 2017-04-24 06:41 | NUR ---
FAMILY SERVICES ASSISTANT NOTE, PERFORMED ACCU CHECK ON PATIENT WITH A BLOOD SUGAR RESULT OF 103 NO INSULIN GIVEN PER SLIDING SCALE. WILL CONTINUE TO MONITOR THIS PATIENT.
--- NOTE | 2017-04-24 06:55 | NUR ---
LINE UP EXAMINER NOTE, PATIENT AWAKE AND IN BED, NO S/S OR COMPLAINTS OF PAIN AT THIS TIME. PATIENT BREATHING IS UNLABORED WITH EQUAL RISE AND FALL OF THE CHEST. PATIENT IS BULGARIAN SPEAKING. PATIENT IS ALERT AND ORIENTED X 2 ON 3 LITERS OF O2 VIA NASAL CANNULA WITH A SPOO2 97%. PATIENT HAS RIGHT UPPER ARM PICC LINE THAT IS INTACT, PATENT, AND FLUSHING WELL WITH NO S/S OF INFILTRATION. PATIENT ASSISTED WITH TURNING AND REPOSITIONING Q2HR AND PRN FOR COMFORT AND CIRCULATION. ALL PATIENTS NEEDS ANTICIPATED AND MET. PATIENT BED SIDE RAILS UP X 2 FOR SAFETY. PATIENT BED IS LOCKED AND LOW WILL ENDORSE TO AM SHIFT NURSE FOR CONTINUATION OF CARE.
[2017-04-24 07:26] LABS: CALCIUM, SERUM 7.9 mg/dL (8.5-10.1); CREATININE 1.5 mg/dL (0.6-1.3); GLUCOSE 107 mg/dL (74-106); UREA NITROGEN, BLOOD 22 mg/dL (7-18)
[2017-04-24 08:00] VITALS: BP_SYST 147; BP_DIAS 68; BP_DIAS 69
[2017-04-24 08:07] LABS: *SPE A/G RATIO 1.6 (0.7-1.7); *SPE ALBUMIN 3.2 g/dL (2.9-4.4); *SPE ALPHA-1-GLOBULIN 0.2 g/dL (0.0-0.4); *SPE ALPHA-2-GLOBULIN 0.4 g/dL (0.4-1.0); *SPE BETA GLOBULIN 0.6 g/dL (0.7-1.3); *SPE M-SPIKE Not Observed g/dL (Not Observed); *SPEGAMMA GLOBULIN 0.7 g/dL (0.4-1.8)
[2017-04-24 08:16] LABS: CARBON DIOXIDE 22 mmol/L (21-32); CHLORIDE 108 mmol/L (98-107); POTASSIUM 4.3 mmol/L (3.5-5.1); SODIUM SERUM 137 mmol/L (136-145)
[2017-04-24] MEDS: DAKINS QUARTER STRENGTH (0.125%) 480 ML BOTTLE TOP SCH (09:00)
[2017-04-24] MEDS: AMIODARONE HCL 200 MG TABLET PO SCH ×2 (09:03→21:06)
[2017-04-24] MEDS: LEVOTHYROXINE SODIUM 25 MCG TABLET PO SCH (09:03)
[2017-04-24] MEDS: LINAGLIPTIN 5 MG TABLET PO SCH (09:03)
[2017-04-24] MEDS: hydrALAZINE HCL 50 MG TABLET PO SCH ×3 (09:04→17:48)
[2017-04-24] MEDS: CLOTRIMAZOLE 1% 15 GM TUBE TP SCH ×2 (09:06→17:00)
[2017-04-24] MEDS: HYDROCODONE/APAP 5/325MG 1 EACH TABLET PO PRN (13:29)
--- NOTE | 2017-04-24 14:56 | NUR ---
- Patient had Physical therapy session of ambulating at the hallway , per PT was able to ambulate about 60feet with continous O2 , non-labored respirations, mendoza cath in, obtained urine specimen for U/A CX as ordered, was given PRN NORCO per request, ate meals & tolerated without problems, appears calm & cooperative.
[2017-04-24 16:00] VITALS: BP 123/60
[2017-04-24] MEDS ORDERED: FUROSEMIDE 20 MG/2 ML VIAL IV ONE (16:30)
--- NOTE | 2017-04-24 19:25 | NUR ---
RN OPENING NOTES PT AWAKE AND RESTING IN BED. NO COMPLAINTS OF PAIN, DISTRESS OR SOB AT THIS TIME. PT HAS A RIGHT UPPER ARM PICC AND A LEFT FA IV #22. ROSARIO CATHETER INTACT AND DRAINING WELL. COLOSTOMY INTACT. SAFETY PRECAUTIONS IN PLACE. BED IN LOW LOCKED POSITION, X2 SIDE RAILS UP, CALL LIGHT WITHIN REACH. WILL CONTINUE TO MONITOR.
--- NOTE | 2017-04-24 19:32 | NUR ---
RN CLOSING NOTES; patient ate dinner & tolerated, colostomy bag was changed with good output, abd dressing still on dry & intact. Visited by Dr. Aguayo this PM.
[2017-04-24 20:00] VITALS: BP 135/83
[2017-04-24] MEDS: ZOLPIDEM TARTRATE 5 MG TABLET PO PRN (22:17)
[2017-04-25] MEDS: LEVOFLOXACIN 500 MG /D5W 100ML 500 MG in PREMIX 1 EA IV SCH (03:49)
[2017-04-25 05:05] LABS: APPEARANCE,URINE CLEAR (CLEAR); BILIRUBIN,URINE NEGATIVE (NEGATIVE); BLOOD, URINE NEGATIVE Ery/uL (NEGATIVE); COLOR,URINE YELLOW (YELLOW); KETONES,URINE NEGATIVE (NEGATIVE); LEUKOCYTE ESTERASE ,URINE NEGATIVE (NEGATIVE); NITRITE, URINE NEGATIVE (NEGATIVE); PH,URINE 5.5 (5.0-8.0); PROTEIN,URINE TRACE mg/dl (NEGATIVE); UGLUCOSE NEGATIVE (NEGATIVE); UROBILINOGEN,URINE 0.2 EU/dL (0.2)
[2017-04-25 05:17] LABS: BACTERIA,URINE Few /HPF (None Seen); SQUAMOUS EPITHELIAL CELL,UR Rare /HPF (None Seen); URIC ACID CRYSTALS,URINE Few /HPF (None Seen)
[2017-04-25] MEDS: METRONIDAZOLE 500MG/ NS 100ML 500 MG in PREMIX 1 EA IV SCH ×2 (05:26→12:10)
[2017-04-25 06:47] LABS: BASOPHILS % (AUTO) 0.4 % (0.0-2.0); EOSINOPHILS # (AUTO) 0.3 /CMM (0.0-0.7); EOSINOPHILS % (AUTO) 4.7 % (0.0-6.0); HEMATOCRIT 27 % (39-51); HEMOGLOBIN 9.3 g/dL (13.5-17.5); LYMPHOCYTES # (AUTO) 1.2 /CMM (0.8-4.8); LYMPHOCYTES % (AUTO) 21.2 % (20.0-44.0); MEAN CORPUSCULAR HEMOGLOBIN 31 PG (26.0-33.0); MEAN CORPUSCULAR HGB CONC 34 g/dl (31.0-36.0); MEAN CORPUSCULAR VOLUME 90 fL (80-96); MONOCYTES # (AUTO) 0.6 /CMM (0.1-1.30); MONOCYTES % (AUTO) 11.2 % (2.0-12.0); NEUTROPHILS # (AUTO) 3.5 /CMM (1.8-8.9); NEUTROPHILS % (AUTO) 62.5 % (43.0-81.0); PLATELET COUNT (AUTO) 93 /CMM (150-450); RDW COEFFICIENT OF VARIATION 17.4 (11.5-15.0); RED BLOOD CELL COUNT(AUTO) 3.02 MIL/uL (4.5-6.0); WHITE BLOOD COUNT (AUTO) 5.6 K/uL (4.3-11.0)
[2017-04-25 07:01] LABS: CALCIUM, SERUM 8.1 mg/dL (8.5-10.1); CARBON DIOXIDE 26 mmol/L (21-32); CHLORIDE 107 mmol/L (98-107); CREATININE 1.4 mg/dL (0.6-1.3); GLUCOSE 101 mg/dL (74-106); POTASSIUM 3.9 mmol/L (3.5-5.1); SODIUM SERUM 137 mmol/L (136-145); UREA NITROGEN, BLOOD 19 mg/dL (7-18)
--- NOTE | 2017-04-25 07:25 | NUR ---
RN OPENING NOTES RECEIVED PATIENT IN STABLE CONDITION. AOX3. NO ACUTE DISTRESS. RESPIRATIONS EVEN AND UNLABORED. DENIES ANY PAIN AT THIS TIME. DENIES SOB AND CP. F/C IN PLACE DRAINING URINE. COLOSTOMY INTACT. ABD WOUND DRESSING INTACT. MEJIA PICC LINE INTACT. BED LOCKED IN THE LOWEST POSITION WITH SIDE RAIL UP X2. CALL LIGHT WITHIN REACH. WILL CONTINUE TO MONITOR, AND ASSESS PATIENT THROUGHOUT SHIFT.
--- NOTE | 2017-04-25 07:41 | NUR ---
RN CLOSING NOTES PT RESTING IN BED. NO COMPLAINTS OF PAIN, DISTRESS OR SOB OVERNIGHT. PT HAS A RIGHT UPPER ARM PICC. ROSARIO CATHETER INTACT AND DRAINING WELL. COLOSTOMY INTACT. SAFETY PRECAUTIONS IN PLACE. BED IN LOW LOCKED POSITION, X2 SIDE RAILS UP, CALL LIGHT WITHIN REACH. WILL ENDORSE TO DAY SHIFT NURSE FOR CONTINUITY OF CARE.
[2017-04-25 08:00] VITALS: BP 170/73
[2017-04-25] MEDS ORDERED: ASPIRIN 81 MG TAB.CHEW PO SCH (09:00)
[2017-04-25] MEDS: BLOOD SUGAR DIAGNOSTIC 1 EACH STRIP IN SCH ×2 (09:25→12:11)
[2017-04-25] MEDS: LINAGLIPTIN 5 MG TABLET PO SCH (09:26)
[2017-04-25] MEDS: LEVOTHYROXINE SODIUM 25 MCG TABLET PO SCH (09:26)
[2017-04-25] MEDS: hydrALAZINE HCL 50 MG TABLET PO SCH ×2 (09:26→12:18)
[2017-04-25] MEDS: CLOTRIMAZOLE 1% 15 GM TUBE TP SCH (09:27)
[2017-04-25] MEDS: DAKINS QUARTER STRENGTH (0.125%) 480 ML BOTTLE TOP SCH (09:27)
[2017-04-25] MEDS: AMIODARONE HCL 200 MG TABLET PO SCH (09:27)
[2017-04-25 09:45] LABS: BAND % (MANUAL) 1 % (0.0-5.0); EOSINOPHILS % (MANUAL) 4 % (0-4); LYMPHOCYTES % (MANUAL) 20 % (16-48); MONOCYTES % (MANUAL) 10 % (0-11.0); NEUTROPHILS % (MANUAL) 65 (42-76)
[2017-04-25] MEDS ORDERED: BACL10TA PO (10:58)
[2017-04-25] MEDS ORDERED: AMIO200T7 PO (10:58)
[2017-04-25] MEDS ORDERED: HYDR-4077 PO (10:58)
--- NOTE | 2017-04-25 12:00 | NUR ---
RN NOTES WOUND CARE DONE AND COLOSTOMY BAG CHANGED. DRESSING CLEAN AND INTACT.
[2017-04-25] MEDS ORDERED: FUROSEMIDE 20 MG TABLET PO SCH (13:35)
[2017-04-25] MEDS ORDERED: CARVEDILOL 6.25 MG TABLET PO SCH (14:00)
[2017-04-25 16:00] VITALS: BP 153/74
--- NOTE | 2017-04-25 17:30 | NUR ---
RN CLOSING NOTES PATIENT DISCHARGED IN STABLE CONDITION TO 4 [facility]. REPORT GIVEN TO SREE YOUNG. PATIENT VERBALIZED UNDERSTANDING OF ALL DISCHARGE INSTRUCTIONS. ALL EXITCARE PROVIDED, ACKNOWLEDGED AND SIGNED BY PATIENT. ALL BELONGS ACCOUNTED FOR. ALL WOUNDS DOCUMENTED. PATIENT TO BE SENT WITH PICC LINE IN PLACE AND F/C FOR CONTINUATION OF TREATMENT. PATIENT TO HAVE PRESCRIPTION TO CONTINUE MEDICATIONS. ALL NEEDS MET. ALL MEDS GIVEN APPROPRIATE. DENIES ANY PAIN. DENIES CP AND SOB. AOX3. RESPIRATIONS EVEN AND UNLABORED. NO ACUTE DISTRESS. PATIENT TO BE TRANSFERRED VIA AMBULANCE.
== END 2017-04-25 17:57 | DRG 280 ==
LOC: ER 19:17 → ICU 21:01 → TELE-TD 04-19 23:01 → TELE1 04-21 10:02 → TELE 04-22 11:46 → MED 04-23 11:19
PROVIDERS: ADMIT Nurse Practitioner Acute Care; ATTEND Nurse Practitioner Acute Care
PROC: 30233N1 Transfusion of Nonautologous Red Blood Cells into Peripheral Vein, Percutaneous Approach (ICD-10-PCS; principal; 2017-04-19)
PROC: 02HV33Z Insertion of Infusion Device into Superior Vena Cava, Percutaneous Approach (ICD-10-PCS; 2017-04-21)
PROC: B548ZZA Ultrasonography of Superior Vena Cava, Guidance (ICD-10-PCS; 2017-04-21)
DX: I21.A1 Myocardial infarction type 2 (principal); N17.0 Acute kidney failure with tubular necrosis; I71.02 Dissection of abdominal aorta; I47.2 Ventricular tachycardia; E44.0 Moderate protein-calorie malnutrition; C78.7 Secondary malignant neoplasm of liver and intrahepatic bile duct; I50.31 Acute diastolic (congestive) heart failure; D68.59 Other primary thrombophilia; E83.51 Hypocalcemia; I13.0 Hypertensive heart and chronic kidney disease with heart failure and stage 1 through stage 4 chronic kidney disease, or unspecified chronic kidney disease; I47.1 Supraventricular tachycardia; C18.9 Malignant neoplasm of colon, unspecified; K92.2 Gastrointestinal hemorrhage, unspecified; I48.92 Unspecified atrial flutter; N13.30 Unspecified hydronephrosis; E11.22 Type 2 diabetes mellitus with diabetic chronic kidney disease; L89.92 Pressure ulcer of unspecified site, stage 2; Z95.5 Presence of coronary angioplasty implant and graft; Z93.3 Colostomy status; Z90.49 Acquired absence of other specified parts of digestive tract; Z79.899 Other long term (current) drug therapy; Z79.82 Long term (current) use of aspirin; Z79.51 Long term (current) use of inhaled steroids; Z79.4 Long term (current) use of insulin; Z79.84 Long term (current) use of oral hypoglycemic drugs; N18.9 Chronic kidney disease, unspecified; I25.10 Atherosclerotic heart disease of native coronary artery without angina pectoris; E03.9 Hypothyroidism, unspecified; D64.9 Anemia, unspecified; L98.9 Disorder of the skin and subcutaneous tissue, unspecified; I70.0 Atherosclerosis of aorta; I48.91 Unspecified atrial fibrillation; M43.17 Spondylolisthesis, lumbosacral region
CPT/HCPCS: 36415; 71010-TC; 71045; 76770-TC; 80048-TC; 80053-TC; 80061-TC; 80076-TC; 81000-TC; 82272-TC; 82306; 82728-TC; 82746; 82784; 82962-TC; 83540-TC; 83735-TC; 83880; 84100-TC; 84155; 84165; 84439-TC; 84443-TC; 84484-TC; 85025-TC; 85027-TC; 85730-TC; 86334; 86850-TC; 86921-TC; 87081-TC; 87086-TC; 93307-TC; 97110-TC; 97116-TC; 97530-TC; A4216; A4217; A4606; A6253; A6402; A6403; J0282; J0360; J1160; J1815; J1940; J1956; J2270; J2405; J3490; J7030; J7040; J7050; J7060; J7070; P9016-BL; Z7610

== ENCOUNTER 2017-04-27 03:10 | Inpatient (IN) | payer MEDICARE, MEDICAID ==
[~2017-04-27] VITALS: Ht 170.2 cm; Wt 83.5 kg
[~2017-04-27 03:10] MED LIST: *INS NOVA SQ; AMIO200T7 PO; ASPI-1169 PO; ATOR40TA PO; BACL10TA PO; BUDE10.2 INH; DILT240C2 PO; FURO20TA4 PO; HYDR-4077 PO; INSU3INS9 SQ; LEVO25TA7 PO; LEVO500P8 IV; METO-356 PO; METR500P4 IV; OMEP20CA10 PO; SITA100T PO
--- NOTE | 2017-04-27 03:20 | NUR ---
PT BIB RA WITH A C/O N/V PLATING MACHINE OPERATOR. PT WENT TO BED #12 AND WAS PLACED IN A GOWN AND ON THE MONITOR/CONTINUOUS PULSE OX.
[2017-04-27] MEDS ORDERED: IV NS 0.9% 500 ML BAG IV ONE (03:30)
[2017-04-27] MEDS ORDERED: ONDANSETRON HCL/PF 4 MG/2 ML VIAL IVP ONE (03:30)
--- NOTE | 2017-04-27 03:40 | NUR ---
PT LEFT FOR CT VIA GURNEY.
[2017-04-27] MEDS ORDERED: ONDANSETRON HCL/PF 4 MG/2 ML VIAL ONE ×3 (03:47→06:29)
--- NOTE | 2017-04-27 04:00 | NUR ---
PT RETURNED FROM CT.
--- NOTE | 2017-04-27 04:02 | NUR ---
PT FELT NAUSEATED AND REC'D FLUID AND ZOFRAN.
[2017-04-27 04:03] LABS: BASOPHILS # (AUTO) 0.4 /CMM (0.0-0.2); BASOPHILS % (AUTO) 4.5 % (0.0-2.0); EOSINOPHILS % (AUTO) 0.5 % (0.0-6.0); HEMATOCRIT 35 % (39-51); HEMOGLOBIN 12.3 g/dL (13.5-17.5); LYMPHOCYTES # (AUTO) 1.5 /CMM (0.8-4.8); LYMPHOCYTES % (AUTO) 16.6 % (20.0-44.0); MEAN CORPUSCULAR HEMOGLOBIN 32 PG (26.0-33.0); MEAN CORPUSCULAR HGB CONC 36 g/dl (31.0-36.0); MEAN CORPUSCULAR VOLUME 89 fL (80-96); MONOCYTES # (AUTO) 0.6 /CMM (0.1-1.30); MONOCYTES % (AUTO) 6.2 % (2.0-12.0); NEUTROPHILS # (AUTO) 6.7 /CMM (1.8-8.9); NEUTROPHILS % (AUTO) 72.2 % (43.0-81.0); PLATELET COUNT (AUTO) 149 /CMM (150-450); RDW COEFFICIENT OF VARIATION 17.8 (11.5-15.0); RED BLOOD CELL COUNT(AUTO) 3.89 MIL/uL (4.5-6.0); WHITE BLOOD COUNT (AUTO) 9.2 K/uL (4.3-11.0)
--- NOTE | 2017-04-27 04:14 | NUR ---
PT STILL FELT NAUSEATED. DR CORTEZ IS AWARE. NEW ORDER FOR 4MG ZOFRAN GIVEN.
[2017-04-27 04:19] LABS: CALCIUM, SERUM 8.5 mg/dL (8.5-10.1); CARBON DIOXIDE 26 mmol/L (21-32); CHLORIDE 101 mmol/L (98-107); CREATININE 1.9 mg/dL (0.6-1.3); GLUCOSE 180 mg/dL (74-106); POTASSIUM 4.2 mmol/L (3.5-5.1); SODIUM SERUM 134 mmol/L (136-145); UREA NITROGEN, BLOOD 23 mg/dL (7-18)
[2017-04-27 04:22] LABS: INR 1.12 (0.87-1.13); PROTHROMBIN TIME 11.7 SECS (9.5-12.7)
[2017-04-27 04:25] LABS: ALANINE AMINOTRANSFERASE 43 U/L (12-78); ALKALINE PHOSPHATASE 92 U/L (46-116); ASPARTATE AMINOTRANSFERASE 46 U/L (15-37); BILIRUBIN,DIRECT 0.2 mg/dL (0.0-0.2); BILIRUBIN,TOTAL 0.6 mg/dL (0.2-1.0); LIPASE 669 U/L (73-393); TOTAL PROTEIN, SERUM 5.9 g/dL (6.4-8.2)
[2017-04-27 04:27] LABS: TROPONIN I 0.223 ng/mL (0.00-0.056)
[2017-04-27] MEDS ORDERED: LIDOCAINE VISCOUS 2% UD 15 ML UDC ONE (04:49)
--- NOTE | 2017-04-27 04:50 | NUR ---
CALLED BILLING SERVICES MANAGER FOR TELE BED
--- NOTE | 2017-04-27 04:54 | NUR ---
CEASAR CALLED; TRANSFERED TO DR. CORTEZ
[2017-04-27] MEDS ORDERED: PANTOPRAZOLE 80 MG in IV NS 0.9% 500 ML IV ONE (05:00)
[2017-04-27] MEDS ORDERED: METOCLOPRAMIDE HCL 10 MG/2 ML VIAL ONE (05:04)
[2017-04-27] MEDS ORDERED: ONDANSETRON HCL/PF 4 MG/2 ML VIAL IV ONE ×2 (05:30→06:30)
[2017-04-27] MEDS ORDERED: METOCLOPRAMIDE HCL 10 MG/2 ML VIAL IV ONE (05:30)
--- NOTE | 2017-04-27 05:30 | NUR ---
IBIS PAGED AGAIN
--- NOTE | 2017-04-27 05:44 | NUR ---
Note hiteshone in EDM - 04/27/17 at 0640 by MINH PROCEDURE STARTED. PT HAS 1L NS INFUSING INTO LAC 18G PER DR. CORTEZ. 40 MG PROPOFOL GIVEN IVP BY SREE ANAYA VIA 18G LAC.
--- NOTE | 2017-04-27 05:45 | NUR ---
Note keeley in EDM - 04/27/17 at 0640 by MINH PT REC'D 20MG PROPOFOL IVP VIA 18G BY RN. HÉCTOR PT NOT SEDATED.
--- NOTE | 2017-04-27 05:47 | NUR ---
Ayden mina in ED - 04/27/17 at 0640 by MINH PT REC'D 40MG PROPOFOL IVP VIA 18G BY SREE ANAYA
--- NOTE | 2017-04-27 05:50 | NUR ---
Ayden mina in EDM - 04/27/17 at 0640 by MINH PT STILL NOT SEDATED. PT REC'D 40 MG PROPOFOL IVP BY HÉCTOR RN
--- NOTE | 2017-04-27 05:52 | NUR ---
Note keeley in EDM - 04/27/[address] CORTEZ REDUCING RT SHOULDER. PT WOKE UP. UNABLE TO REDUCE THE SHOULDER.
--- NOTE | 2017-04-27 05:54 | NUR ---
Ayden mina in ED - 04/27/17 at 0640 by MINH PT REC'D 40MG PROPOFOL IVP BY SREE ANAYA
--- NOTE | 2017-04-27 05:55 | NUR ---
Ayden mina in EDM - 04/27/[address] CORTEZ REDUCING PT'S RT SHOULDER. UNSUCCESSFUL.
--- NOTE | 2017-04-27 05:58 | NUR ---
Ayden mina in ED - 04/27/17 at 0640 by MINH 20MG PROPOFOL GIVEN IVP BY SREE ANAYA
--- NOTE | 2017-04-27 06:01 | NUR ---
Ayden mina in ED - 04/27/17 at 0640 by MINH UNABLE TO REDUCE THE RT SHOULDER.
[2017-04-27 06:02] LABS: APPEARANCE,URINE SL CLOUDY (CLEAR); BILIRUBIN,URINE 1+ (NEGATIVE); BLOOD, URINE 2+ Ery/uL (NEGATIVE); COLOR,URINE YELLOW (YELLOW); KETONES,URINE TRACE (NEGATIVE); LEUKOCYTE ESTERASE ,URINE NEGATIVE (NEGATIVE); NITRITE, URINE POSITIVE (NEGATIVE); PH,URINE 5.5 (5.0-8.0); PROTEIN,URINE 2+ mg/dl (NEGATIVE); UGLUCOSE NEGATIVE (NEGATIVE); UROBILINOGEN,URINE 0.2 EU/dL (0.2)
--- NOTE | 2017-04-27 06:03 | NUR ---
Ayden mina in ED - 04/27/17 at 0640 by MINH PT REC'D 40 MG PROPOFOL IVP BY SREE ANAYA
[2017-04-27 06:05] LABS: BACTERIA,URINE Moderate /HPF (None Seen); RBC,URINE 51-80 /HPF (0-2); SQUAMOUS EPITHELIAL CELL,UR Few /HPF (None Seen)
--- NOTE | 2017-04-27 06:05 | NUR ---
Note keeley in EDM - 04/27/17 at 0640 by MINH RT SHOULDER REDUCED. XRAY CALLED TO CONFIRM REDUCTION.
--- NOTE | 2017-04-27 06:07 | NUR ---
IBIS PAGED FOR THIRD TIME
--- NOTE | 2017-04-27 06:07 | NUR ---
Ayden mina in ED - 04/27/17 at 0640 by MINH XRAY AT THE BEDSIDE.
[2017-04-27] MEDS ORDERED: PANTOPRAZOLE 40 MG VIAL ONE (06:11)
--- NOTE | 2017-04-27 06:20 | NUR ---
CALLED INDUSTRIAL CHEMICALS SUPERVISOR FOR JOSE BED.
[2017-04-27] MEDS ORDERED: MORPHINE SULFATE INJ 4 MG/ML DISP.SYRIN ONE ×2 (06:28→10:20)
[2017-04-27] MEDS ORDERED: MORPHINE SULFATE INJ 2 MG/ML DISP.SYRIN IV ONE (06:30)
--- NOTE | 2017-04-27 06:32 | NUR ---
PT REC'D MEDICATION ORDERED.
[2017-04-27] MEDS ORDERED: MAG HYDROX/AL HYDROX/SIMETH 30 ML UDC PO PRN (07:00)
[2017-04-27] MEDS ORDERED: ACETAMINOPHEN 325 MG TABLET PO PRN (07:00)
[2017-04-27] MEDS ORDERED: ACETAMINOPHEN 650 MG/SUPP.RECT RC PRN (07:00)
[2017-04-27] MEDS ORDERED: MORPHINE SULFATE INJ 2 MG/ML DISP.SYRIN IV PRN (07:00)
[2017-04-27] MEDS ORDERED: MAGNESIUM HYDROXIDE 30 ML UDC PO PRN (07:00)
[2017-04-27] MEDS ORDERED: DEXTROSE 50%-WATER 50 ML DISP.SYRIN IV PRN (07:00)
[2017-04-27] MEDS ORDERED: ONDANSETRON HCL/PF 4 MG/2 ML VIAL IVP PRN (07:00)
[2017-04-27] MEDS ORDERED: Z GUARD REMEDY 2 OZ OINT TP PRN (07:00)
--- NOTE | 2017-04-27 07:11 | NUR ---
pt is c/o hiccups. pt is on the monitor and continous pulse ox.
--- NOTE | 2017-04-27 07:16 | NUR ---
report given to SREE Azul for JUANA.
[2017-04-27] MEDS ORDERED: PANTOPRAZOLE 40 MG VIAL IV SCH (09:00)
--- NOTE | 2017-04-27 09:46 | NUR ---
CALL RECEIVED FROM PCP, DR ATWOOD, WANTS TO TALK TO THE ATTENDING. WANTS TO BE CALLED AT [phone] WHEN ATTENDING IS AVAILABLE
[2017-04-27] MEDS: BLOOD SUGAR DIAGNOSTIC 1 EACH STRIP VI SCH ×4 (09:49→22:06)
[2017-04-27] MEDS: INSULIN REGULAR, HUMAN 100 UNIT/ML 3 ML VIAL SQ PRN (09:50)
--- NOTE | 2017-04-27 11:10 | NUR ---
RN NOTES RECEIVED PT FROM ER PT A&0X3, FAROESE SPEAKING WITH SON IN LAW AT BEDSIDE. PT COMPLAINING OF N/V. PREET MIDLINE IN PLACE. NO ACTIVE GI BLEED AT THIS TIME. TELE MONITOR D/MARIANNE BY DR COPE. WILL CONT TO THAD.
[2017-04-27 12:00] VITALS: BP 162/90
[2017-04-27] MEDS: *INSULIN REGULAR(HUMULIN R)HUM 100 UNIT/ML VIAL SQ PRN ×2 (12:02→22:13)
[2017-04-27] MEDS: HYDROCODONE/APAP 5/325MG 1 EACH TABLET PO PRN (12:45)
[2017-04-27] MEDS: IV D5/0.45 NACL 1,000 ML IV PRN (14:01)
[2017-04-27] MEDS: MORPHINE SULFATE INJ 4 MG/ML DISP.SYRIN IV PRN ×2 (15:44→21:58)
[2017-04-27 16:00] VITALS: BP 156/69
[2017-04-27] MEDS ORDERED: LORAZEPAM 0.5 MG TABLET PO ONE (16:30)
--- NOTE | 2017-04-27 18:33 | NUR ---
RN NOTES L NARE NG TUBE PLACED NO LOW INTERMITTENT SUCTION. 400ML DARK RED/BROWN COLORED OUTPUT. CXRAY ORDERED TO VERIFY PLACEMENT. PT RESTING IN BED STATES HE FEELS A LITTLE BETTER AFTER NG TUBE WAS PLACED. IVF RUNNING AT 75ML/HR. PT NPO, AWAITING CONSULTS. WILL ENDORSE TO ONCOMING SHIFT.
--- NOTE | 2017-04-27 19:30 | NUR ---
MS RN INITIAL NOTE PT RECEIVED SITTING UP IN BED. A/O X3, CHINESE SPEAKING AND ABLE TO MAKE NEEDS KNOWN. ON ROOM AIR AND SATURATING WELL. BREATHING EVEN AND UNLABORED. NGTUBE IN LEFT NARE AND SECURED IN PLACE WITH LOW INTERMITTENT SUCTION. HOB ELEVATED. IV PREET MIDLINE CLEAN AND INTACT WITH FLUIDS INFUSING. COLOSTOMY BAG IN PLACE AND CLEAN. ROSARIO CATHETER IN PLACE AND DRAINING BY GRAVITY. BED LOCKED IN PLACE AND IN LOWEST POSITION. CALL LIGHT WITHIN REACH. WILL CONTINUE TO MONITOR.
[2017-04-27 20:00] VITALS: BP_SYST 116; BP_SYST 172; BP_DIAS 71
--- NOTE | 2017-04-27 23:48 | NUR ---
MS BALBUENA NOTES INFORMED DR. BAUMANN PATIENT PULLED OUT NGT AND NEW NGT WAS PLACED. WITH ORDERS FOR BILATERAL WRIST RESTRAINTS. NOTED AND CARRIED OUT. WILL CONTINUE TO MONITOR. Addendum: 04/28/17 at 0042 by CHRISTIANE MARIANO RN STAT CHEST X RAY ORDERED. WILL FOLLOW UP
[2017-04-28] MEDS: HYDROCODONE/APAP 5/325MG 1 EACH TABLET PO PRN (01:34)
[2017-04-28 04:00] VITALS: BP 149/70
--- NOTE | 2017-04-28 04:26 | NUR ---
MS RN NOTE PT REMOVED NGTUBE DURING REPOSITION AND CHANGE. REINSERTED NTGUBE AND VERIFIED PLACEMENT WITH 2 RN'S WITH POSITIVE GASTRIC FLUID. HOB ELEVATED. BILATERAL SOFT WRIST RESTRAINTS IN PLACE. WILL CONTINUE TO MONITOR.
[2017-04-28] MEDS: IV D5/0.45 NACL 1,000 ML IV PRN ×2 (04:39→18:03)
[2017-04-28 07:23] LABS: BASOPHILS % (AUTO) 0.2 % (0.0-2.0); EOSINOPHILS # (AUTO) 0.1 /CMM (0.0-0.7); EOSINOPHILS % (AUTO) 1.7 % (0.0-6.0); HEMATOCRIT 31 % (39-51); HEMOGLOBIN 10.7 g/dL (13.5-17.5); LYMPHOCYTES # (AUTO) 1.2 /CMM (0.8-4.8); LYMPHOCYTES % (AUTO) 13.5 % (20.0-44.0); MEAN CORPUSCULAR HEMOGLOBIN 32 PG (26.0-33.0); MEAN CORPUSCULAR HGB CONC 34 g/dl (31.0-36.0); MEAN CORPUSCULAR VOLUME 93 fL (80-96); MONOCYTES # (AUTO) 0.7 /CMM (0.1-1.30); NEUTROPHILS # (AUTO) 6.6 /CMM (1.8-8.9); NEUTROPHILS % (AUTO) 76.6 % (43.0-81.0); PLATELET COUNT (AUTO) 119 /CMM (150-450); RDW COEFFICIENT OF VARIATION 20.4 (11.5-15.0); RED BLOOD CELL COUNT(AUTO) 3.36 MIL/uL (4.5-6.0); WHITE BLOOD COUNT (AUTO) 8.6 K/uL (4.3-11.0)
[2017-04-28] MEDS: BLOOD SUGAR DIAGNOSTIC 1 EACH STRIP VI SCH ×4 (07:30→22:55)
[2017-04-28 07:35] LABS: CALCIUM, SERUM 7.8 mg/dL (8.5-10.1); CARBON DIOXIDE 26 mmol/L (21-32); CHLORIDE 103 mmol/L (98-107); GLUCOSE 142 mg/dL (74-106); MAGNESIUM 1.8 mg/dL (1.8-2.4); PHOSPHORUS 3.9 mg/dL (2.5-4.9); POTASSIUM 3.8 mmol/L (3.5-5.1); SODIUM SERUM 137 mmol/L (136-145); UREA NITROGEN, BLOOD 29 mg/dL (7-18)
[2017-04-28] MEDS: PANTOPRAZOLE 40 MG VIAL IV SCH (09:08)
[2017-04-28] MEDS: Z GUARD REMEDY 2 OZ OINT TP SCH (09:09)
[2017-04-28] MEDS: INSULIN REGULAR, HUMAN 100 UNIT/ML 3 ML VIAL SQ PRN (12:40)
[2017-04-28 19:07] VITALS: BP 145/65
[2017-04-28 20:00] VITALS: BP 152/66
--- NOTE | 2017-04-28 20:00 | NUR ---
RN NOTES RECEIVED PATIENT IN BED WITH EYES CLOSED, NO DISTRESS NOTED. BREATHING EVEN AND UNLABORED. NO PHYSICAL MANIFESTATION OF PAIN OR DISCOMFORT. NGT IN PLACE ATTACHED TO SUCTION MACHINE WORKING WELL. VITAL SIGNS WNL. KEPT CLEAN AND DRY. WILL CONTINUE TO MONITOR.
[2017-04-28] MEDS: *INSULIN REGULAR(HUMULIN R)HUM 100 UNIT/ML VIAL SQ PRN (22:56)
--- NOTE | 2017-04-28 23:30 | NUR ---
RN NOTES TRANSFERRED TO ROOM 201 IN STABLE CONDITION. NO COMPLAINT OF PAIN OR DISCOMFORT. BREATHING EVEN AND UNLABORED. ENDORSED TO 201 NURSE.
--- NOTE | 2017-04-28 23:35 | NUR ---
MSRN RECEIVED VIA BED TRANSFER FROM MS 1. HALFLY AWAKE, BILAATERAL SOFT WRIST RESTRAINTS ON TO PREVENT PATIENT FROM PULLING NGT. NGT TO LIS, NO DRAINAGE SEEN. FC TO GRAVITY, OUTPUT MONIOTRED. NEEDS FREQ OBSERVATION, KEPT NPO.
--- NOTE | 2017-04-29 04:31 | NUR ---
MSRN SLEPT WELL, CONTINUED MONITORING.
[2017-04-29] MEDS: BLOOD SUGAR DIAGNOSTIC 1 EACH STRIP VI SCH (07:30)
[2017-04-29 08:27] LABS: BASOPHILS # (AUTO) 0.1 /CMM (0.0-0.2); BASOPHILS % (AUTO) 0.7 % (0.0-2.0); EOSINOPHILS # (AUTO) 0.3 /CMM (0.0-0.7); EOSINOPHILS % (AUTO) 3.3 % (0.0-6.0); HEMATOCRIT 30 % (39-51); HEMOGLOBIN 10.4 g/dL (13.5-17.5); LYMPHOCYTES # (AUTO) 1.5 /CMM (0.8-4.8); LYMPHOCYTES % (AUTO) 18.7 % (20.0-44.0); MEAN CORPUSCULAR HEMOGLOBIN 32 PG (26.0-33.0); MEAN CORPUSCULAR HGB CONC 35 g/dl (31.0-36.0); MEAN CORPUSCULAR VOLUME 92 fL (80-96); MONOCYTES # (AUTO) 0.7 /CMM (0.1-1.30); MONOCYTES % (AUTO) 8.4 % (2.0-12.0); NEUTROPHILS # (AUTO) 5.5 /CMM (1.8-8.9); NEUTROPHILS % (AUTO) 68.9 % (43.0-81.0); PLATELET COUNT (AUTO) 125 /CMM (150-450); RDW COEFFICIENT OF VARIATION 19.3 (11.5-15.0); RED BLOOD CELL COUNT(AUTO) 3.29 MIL/uL (4.5-6.0)
[2017-04-29 08:52] LABS: CALCIUM, SERUM 7.7 mg/dL (8.5-10.1); CARBON DIOXIDE 26 mmol/L (21-32); CHLORIDE 103 mmol/L (98-107); CREATININE 1.3 mg/dL (0.6-1.3); GLUCOSE 143 mg/dL (74-106); POTASSIUM 3.7 mmol/L (3.5-5.1); SODIUM SERUM 135 mmol/L (136-145); UREA NITROGEN, BLOOD 22 mg/dL (7-18)
[2017-04-29] MEDS: Z GUARD REMEDY 2 OZ OINT TP SCH (09:00)
[2017-04-29] MEDS: PANTOPRAZOLE 40 MG VIAL IV SCH (09:00)
--- NOTE | 2017-04-29 09:53 | NUR ---
PT IS REFUSING TO BE TOUCHED. PT STATES, "NO MEDICINE, NO PICTURES." EXPLAINED THE IMPORTANCE OF MEDICATIONS AND DISCHARGE PICTURES, BUT PT STILL REFUSES. WILL ATTEMPT AGAIN BEFORE DISCHARGE.
--- NOTE | 2017-04-29 10:30 | NUR ---
DISCHARGE INSTRUCTIONS GIVEN TO THE PATIENT'S SON AND ABLE TO UNDERSTAND. PT IS STILL REFUSING PICTURES AND MEDS AT THE TIME. PT GLASSES AND DENTURES SENT WITH THE PATIENT'S SON ON DISCHARGE. PATIENT TRANSFERRED TO [facility]. REPORT GIVEN TO SREE VANEGAS. PT LEFT IN STABLE CONDITION, VIA AMBULANCE. PICC, ROSARIO, AND NG TUBE LEFT IN PLACE PER MD ORDER.
== END 2017-04-29 10:30 | disposition short-term general hospital (02) | DRG 388 ==
LOC: ER 03:13 → TRANSITION 08:50 → TELE1 10:43 → MEDSG1 12:53 → MEDSG2 04-28 23:37
PROVIDERS: ADMIT Internal Medicine; ATTEND Nurse Practitioner Acute Care
PROC: 05H533Z Insertion of Infusion Device into Right Subclavian Vein, Percutaneous Approach (ICD-10-PCS; principal; 2017-04-27)
PROC: B546ZZA Ultrasonography of Right Subclavian Vein, Guidance (ICD-10-PCS; 2017-04-27)
DX: K56.609 Unspecified intestinal obstruction, unspecified as to partial versus complete obstruction (principal); N17.0 Acute kidney failure with tubular necrosis; J90 Pleural effusion, not elsewhere classified; E44.0 Moderate protein-calorie malnutrition; C78.00 Secondary malignant neoplasm of unspecified lung; C78.7 Secondary malignant neoplasm of liver and intrahepatic bile duct; D68.59 Other primary thrombophilia; E11.22 Type 2 diabetes mellitus with diabetic chronic kidney disease; D69.2 Other nonthrombocytopenic purpura; N39.0 Urinary tract infection, site not specified; J98.11 Atelectasis; I48.91 Unspecified atrial fibrillation; D64.9 Anemia, unspecified; E03.9 Hypothyroidism, unspecified; E78.5 Hyperlipidemia, unspecified; I25.10 Atherosclerotic heart disease of native coronary artery without angina pectoris; I25.2 Old myocardial infarction; I35.9 Nonrheumatic aortic valve disorder, unspecified; K21.9 Gastro-esophageal reflux disease without esophagitis; Z79.51 Long term (current) use of inhaled steroids; Z79.82 Long term (current) use of aspirin; Z79.84 Long term (current) use of oral hypoglycemic drugs; Z79.899 Other long term (current) drug therapy; Z79.4 Long term (current) use of insulin; K46.9 Unspecified abdominal hernia without obstruction or gangrene; Z95.5 Presence of coronary angioplasty implant and graft; Z90.49 Acquired absence of other specified parts of digestive tract; L89.92 Pressure ulcer of unspecified site, stage 2; L89.629 Pressure ulcer of left heel, unspecified stage; I12.9 Hypertensive chronic kidney disease with stage 1 through stage 4 chronic kidney disease, or unspecified chronic kidney disease; E11.51 Type 2 diabetes mellitus with diabetic peripheral angiopathy without gangrene; N18.9 Chronic kidney disease, unspecified; E86.0 Dehydration
CPT/HCPCS: 36415; 71045-TC; 80048-TC; 80076-TC; 81000-TC; 82962-TC; 83605-TC; 83690-TC; 83735-TC; 84100-TC; 84484-TC; 85025-TC; 85730-TC; 86850-TC; 87040-TC; 87081-TC; 87086-TC; A4216; A4606; A6253; A6402; A6403; C9113; J1815; J2270; J2405; J2765; J3490; J7030; J7040; J7060; Z7610